=== PATIENT | female | born 1975 | race Caucasian/White ===

== ENCOUNTER 2017-08-27 05:47 | Inpatient (IN) | payer OTHER ==
[~2017-08-27 05:47] MED LIST: CITRIC ACID/SODIUM CITRATE 30 ML UNIT-DOSE CUP PO ONE; ELECTROLYTE-148 SOLN 500 ML IV ONE
[2017-08-27] MEDS ORDERED: ELECTROLYTE-148 SOLN 500 ML IV ONE (06:17)
[2017-08-27 07:00] VITALS: BMI 47.0
[2017-08-27] MEDS ORDERED: TUBERCULIN PPD 5 TU/0.1ML SYRINGE (IN PATIENT USE ONLY) ID ONE (07:00)
[2017-08-27] MEDS ORDERED: morphine SULFATE/Preservative Free 0.5 MG/ML (1cc Syringe) EP ONE (08:24)
[2017-08-27] MEDS ORDERED: IBUPROFEN 600 MG TABLET (FP) PO PRN (08:24)
[2017-08-27] MEDS ORDERED: ONDANSETRON 4 MG/2 ML VIAL IVPB PRN (08:24)
[2017-08-27] MEDS ORDERED: IBUPROFEN 800 MG/8 ML IJ IVPB PRN (08:26)
--- NOTE | 2017-08-27 08:32 | HP ---
Past Medical History - Admission History of Present Illness: 41 yo @ 39 1/7 wks by first trimester ultrasound, EDC 09/02/2017 complicated by: 1. Morbid Obesity - BMI 47.0 3 lb net weight gain this 2. GDMA 2 - on NPH insulin 28 u QHS last FS review - few fasting elevation 08/18/17 s/p ultrasound 08/26, BPP 06/17 most recent EFW (08/04/17) 2591g 34% 3. AMA - favorable cell free DNA aneuploidy assay 4. Prior CD 5. Rh negative, s/p rhogam 06/09/17 She presents for scheduled repeat delivery. Patient reports no acute complaints. She reports movement, denies leakage of fluid, contractions or vaginal bleeding History Source: Patient Limitations to Obtaining History: No Limitations - Past Medical History Cardiovascular: No: HTN Pulmonary: No: Asthma Gastrointestinal: No: GERD ...: 2 ...Para: 1 ...Term: 1 ...: 0 ...Spon : 0 ...Induced : 0 ...Multiple Gestation: 0 ...LMP: 11/28/16 ... Weeks Gestation by Dates: 38.6 ...EDC by Dates: 09/04/17 ...EDC by Sono: 09/02/17 Heme/Onc: No: Anemia Endocrine: Yes: Diabetes Mellitus (GDM) - Past Surgical History Past Surgical History: Yes: None Hx Myomectomy: No Hx Transabdominal Cerclage: No - Smoking History Smoking history: Never smoked Have you smoked in the past 12 months: No Aproximately how many cigarettes per day: 0 If you are a former smoker, when did you quit?: 1.5 yrs ago - Alcohol/Substance Use Hx Alcohol Use: No History of Substance Use: reports: None - Social History History of Recent Travel: No Home Medications - Allergies Allergies/Adverse Reactions: Allergies Allergy/AdvReac Type Severity Reaction Status Date / Time No Known Allergies Allergy Verified 08/27/17 06:34 - Home Medications Home Medications: Ambulatory Orders Vitamins (Sjr) - 1 tab PO DAILY 12/25/14 Insulin (Levemir) [Levemir Flexpen -] 28 units SQ HS 08/15/17 Family Disease History - Family Disease History Family History: Denies Review of Systems - Review of Systems Constitutional: reports: No Symptoms Neck: reports: No Symptoms Cardiovascular: reports: No Symptoms Respiratory: reports: No Symptoms Gastrointestinal: reports: No Symptoms Breasts: reports: No Symptoms Reported Musculoskeletal: reports: No Symptoms Neurological: reports: No Symptoms Psychiatric: reports: No Symptoms Physical Exam - Maternity Vital Signs: Vital Signs Temperature 97.7 F 08/27/17 05:47 Pulse Rate 71 08/27/17 05:47 Respiratory Rate 20 08/27/17 05:47 Blood Pressure 138/85 08/27/17 05:47 O2 Sat by Pulse Oximetry (%) Constitutional: Yes: Well Nourished, No Distress, Calm Neck: Yes: Supple Cardiovascular: Yes: Regular Rate and Rhythm Lungs: Clear to auscultation - Abdominal Exam/OB Number of Fetuses: Single Presentation: Vertex Contractions: No Monitor Mode: External Category: I Accelerations: Non-Uniform Decelerations: None - Physical Exam Musculoskeletal: Yes: WNL Psychiatric: Yes: Alert, Oriented - Labs Lab Results: PNL - A negative, antibody negative, Hep BSag negative; Hep C Ab negative; Hg Dianne; varicella immune; Rubella immune; Materni T 21 neg; SMA neg; CF neg; Fragile x neg; GBS neg Hemorrhage Risk Assessment - Risk Factors Medium Risk Factors: Yes: Prior , uterine surgery,or multiple laparotomies High Risk Factors: Yes: None Risk Score: 1 Risk Level: Medium Risk Assessment/Plan 41 yo @ 39 1/7 wks, for repeat CD 1. Admit to L&D 2. Routine labs collected and sent 3. Reviewed risks of surgery including but not limited to infection, bleeding requiring transfusion and damage to surrounding organs such as the bowel or bladder. Discussed risk of injury to . Discussed risk of wound infection and separation. Discussed need for planning of future children and possibility of abnormal placentation. 4. VTE - SCDs in place, plan to start lovenox PP 5. GDMA2 - FS wnl this AM, plan for fasting in AM 6. 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 Will proceed to OR
[2017-08-27] MEDS ORDERED: BENZOCAINE 20% 57 GM BOTTLE TP PRN (10:26)
[2017-08-27] MEDS ORDERED: WITCH HAZEL 50% (TUCKS) 40 PAD/JAR PAD TP PRN (10:26)
[2017-08-27] MEDS ORDERED: oxyCODONE HCL 5 MG TABLET PO PRN ×2 (10:26)
[2017-08-27] MEDS ORDERED: METHYLERGONOVINE MALEATE 0.2 MG/1 ML AMP IM PRN (10:26)
--- NOTE | 2017-08-27 10:26 | PN ---
Delivery - Delivery Section: Repeat Type of Anesthesia: Spinal EBL (cc): 1,000 Delivery, Single - Stages of Labor Placenta: Yes: Expressed - Condition of Gender: Male Weight: 7 lb 4 oz Position: Left, OT - 1 Minute Total Score: 9 5 Minutes Total Score: 9 - Feeding Plan Initial Plan: Elected not to breastfeed exclusively throughout hospitalization Remarks - Remarks Remarks: Surgeon: Fermin Assist: Lavelle Anesthesiologist: Maricarmen Surgery: Repeat CD via Pfannensteil incision UOP: 100 IVF: 2800 EBL 1000 Dictation: [id number]
[2017-08-27] MEDS: OXYTOCIN 20 UNITS in 0.9% NS 1,000 ML IV SCH (11:14)
--- NOTE | 2017-08-27 13:55 | OP ---
DATE OF OPERATION: 08/27/2017 PREOPERATIVE DIAGNOSES: 1. Intrauterine at 39 plus weeks. 2. Prior section, desiring repeat. POSTOPERATIVE DIAGNOSES: 1. Intrauterine at 39 plus weeks. 2. Prior section, desiring repeat. SURGEON: Kaley Christensen MD DYE LAB TECHNICIAN: Rey Valderrama MD ANESTHESIOLOGIST: Kam Hernadez MD ANESTHESIA: Spinal anesthesia. SURGERY: Repeat section delivery via Pfannenstiel skin incision. URINE OUTPUT: 100 mL. ESTIMATED BLOOD LOSS: 1000 mL. INTRAVENOUS FLUIDS: 2800 mL. FINDINGS: A male infant in LOT position, Apgars of 9 and 9, weight 7 pounds 4 ounces, 20 inches. Nuchal cord noted x1 and reduced. Normal tubes and ovaries bilaterally. INDICATION: The patient is a 41-year-old 2, para 1 with prior delivery desiring repeat. She was counseled regarding risks, benefits, alternatives, and complications of the procedure including infection, bleeding, and damage to underlying organs such as bowel, bladder, and ureters. She voiced understanding and was brought to the operating room. DESCRIPTION OF PROCEDURE: When anesthesia was found to be adequate, the patient was prepped and draped in the normal sterile fashion and placed in dorsal supine position with a leftward tilt. An approximately 11-cm skin incision was made with a knife and carried down to the underlying rectus fascia using the Bovie electrocautery. The fascia was nicked in the midline and extended laterally. The inferior portion of the fascial incision was tented up using Tyra clamps and dissected off the underlying rectus muscle using the Ross scissors. Attention was brought to the superior portion where in a similar fashion was tented up using Tyra clamps and dissected off the underlying rectus muscles using Ross scissors. The rectus muscles were in the midline and the peritoneum was entered sharply and the peritoneal extension was extended superiorly and inferiorly using the Ross scissors. Truong O retractor was placed in the abdominal cavity and used to retract the patient's pannus. The vesicouterine peritoneum was identified and entered sharply and bladder flap was created sharply. A hysterotomy was performed and extended laterally and superiorly using the bandage scissors. Amniotomy was performed and clear fluid noted. The head was brought to the hysterotomy site. The head was delivered. The nuchal cord was noted and reduced and followed by shoulders and body was delivered without difficulty. The cord was clamped and cut. The was handed to awaiting NICU staff present for delivery. Cord blood was collected and sent. The placenta was manually extracted. The uterus was cleared of all clots and debris. The uterus was closed using 0 Biosyn in running layer was the second layer was umbricated layer. Bleeding from large vessels were noted bilaterally and hemostasis was attained using 0 Biosyn in a figure-of-8 fashion. Vesicouterine peritoneum was reapproximated using 0 Biosyn in running fashion. Gutters were cleared of all clots and debris. Bilateral tubes and ovaries were identified and found to be normal appearing. The peritoneum was closed using 2-0 Biosyn in a running fashion. Muscle was reapproximated using 0 Biosyn in interrupted fashion. Fascia was closed using 0 Vicryl in a running fashion. Subcutaneous fat was closed using 2-0 and 3-0 Biosyn in a running fashion. The skin was reapproximated using 3-0 Vicryl. The patient tolerated the procedure well. Estimated blood loss was 1000 mL. The patient was brought to the recovery room in stable condition. Elva [id number] MTDD
[2017-08-28] MEDS: SIMETHICONE 80 MG TAB.CHEW (FP) PO PRN ×2 (05:02→08:56)
[2017-08-28] MEDS: ACETAMINOPHEN 325 MG TABLET (FP) PO PRN ×2 (05:03→08:56)
[2017-08-28] MEDS: IBUPROFEN 600 MG TABLET (FP) PO PRN ×2 (05:04→08:56)
[2017-08-28] MEDS: OXYTOCIN 20 UNITS in 0.9% NS 1,000 ML IV SCH ×2 (05:07→11:02)
--- NOTE | 2017-08-28 07:13 | PN ---
Post Progress Note - Subjective Subjective: Patient without acute complaints. Tolerating clears. ramandeep LYNN'erick this AM, voided. No ambulation or flatus yet. Denies fevers or chills. Pain well controlled. Post Day: 1 Type of Delivery: Repeat C/S Vital Signs: Vital Signs Temperature 98.1 F 08/28/17 05:07 Pulse Rate 73 08/28/17 05:07 Respiratory Rate 18 08/28/17 06:00 Blood Pressure 122/76 08/28/17 05:07 O2 Sat by Pulse Oximetry (%) Breast Exam: Yes: Soft Uterus: Yes: Fundus Firm, Fundus below umbilicus Incision: Yes: Dressing dry and intact Abdomen/GI: Yes: Abdomen soft, Tender (mild incisional) Lochia: Yes: Serosa Lochia, amount: Small Extremities: Yes: Calves non-tender, Edema (trace) Assessment/Plan 41 yo POD #1 s/p repeat CD, afebrile, vital signs stbale, doing well 1. Continue routine postoperative care. 2. Follow up AM CBC 3. Rh screen positive, will give Rhogam as indicated. 4. Encourage ambulation and incentive spirometer use 5. Continue oral pain medication 6. Gestational diabeties - fasting glucose 84 7. Anticipate discharge home postoperative day #3 or #4
--- NOTE | 2017-08-28 08:06 | PN ---
Progress Note (short form) - Note Progress Note: POD #1 - s/p repeat under spinal anesthesia with duramorph. Pt. doing well, sitting up comfortably in chair. No complaints. Good pain control. No apparent anesthetic complications noted. Continue current care.
[2017-08-28 08:52] LABS: BASOPHIL 0.4 % (0-2.0); EOSINOPHIL 1.2 % (0-4.5); MCH 28.9 pg (25.7-33.7); MCHC 33.7 g/dl (32.0-36.0); MEAN CELL VOLUME 85.8 fl (80-96); MEAN PLT VOLUME 8.1 fl (7.5-11.1); NEUTROPHILS 75.9 % (42.8-82.8); PLATELET COUNT 166 K/MM3 (134-434); RDW 14.9 % (11.6-15.6); WHITE BLOOD COUNT 6.5 K/mm3 (4.0-10.0)
[2017-08-28] MEDS: ENOXAPARIN NA (PORCINE) 40 MG/0.4 ML DISP.SYRIN SQ SCH (09:44)
[2017-08-28] MEDS ORDERED: BISACODYL 10 MG SUPP.RECT RC PRN (10:26)
--- NOTE | 2017-08-29 08:36 | PN ---
Progress Note (short form) - Note Progress Note: pod 2 doing well, ambulating CBC, BMP 08/28/17 07:45 Last Vital Signs Temp Pulse Resp BP Pulse Ox 97 F L 98 H 18 140/90 08/29/17 08:25 08/29/17 08:25 08/29/17 08:25 08/29/17 08:25 abdomen soft, no distension, no cva incision dry, clean , healing well, no calf tenderness plan ambulate , cbc in am
[2017-08-29] MEDS: ENOXAPARIN NA (PORCINE) 40 MG/0.4 ML DISP.SYRIN SQ SCH (09:30)
[2017-08-29] MEDS: OXYTOCIN 20 UNITS in 0.9% NS 1,000 ML IV SCH (11:45)
[2017-08-30 08:01] VITALS: BP 128/75; PULSE 84; TEMP 98.6
[2017-08-30 08:52] LABS: BASOPHIL 0.3 % (0-2.0); EOSINOPHIL 2.3 % (0-4.5); MCH 28.6 pg (25.7-33.7); MCHC 32.9 g/dl (32.0-36.0); MEAN CELL VOLUME 86.8 fl (80-96); MEAN PLT VOLUME 8.2 fl (7.5-11.1); NEUTROPHILS 76.4 % (42.8-82.8); PLATELET COUNT 208 K/MM3 (134-434); WHITE BLOOD COUNT 6.2 K/mm3 (4.0-10.0)
--- NOTE | 2017-08-30 09:13 | DS ---
Physical Exam-MEDICAL TRANSPORT SPECIALIST Vital Signs: Vital Signs Temperature 98.6 F 08/30/17 08:00 Pulse Rate 84 08/30/17 08:00 Respiratory Rate 20 08/30/17 08:00 Blood Pressure 128/75 08/30/17 08:00 O2 Sat by Pulse Oximetry (%) Constitutional: Yes: Well Nourished, No Distress, Calm Eyes: Yes: WNL, Conjunctiva Clear, EOM Intact HENT: Yes: WNL, Atraumatic, Normocephalic Neck: Yes: WNL, Supple, Trachea Midline Cardiovascular: Yes: WNL, Regular Rate and Rhythm Respiratory: Yes: WNL, Regular, CTA Bilaterally Gastrointestinal: Yes: WNL ...Rectal Exam: Yes: WNL Renal/: Yes: WNL ....Post : Yes: Uterus firm, Uterus non-tender, Slight lochia rubra Breast(s): Yes: WNL Musculoskeletal: Yes: WNL Extremities: Yes: WNL Integumentary: Yes: WNL Wound/Incision: Yes: Clean/Dry, Well Approximated, Sutures Intact Neurological: Yes: WNL, Alert, Oriented ...Motor Strength: WNL Psychiatric: Yes: WNL, Alert, Oriented Labs: CBC, BMP 08/30/17 07:45 Delivery - Delivery Section: Repeat, Low Flap Transverse Type of Anesthesia: Spinal Episiotomy/Laceration: None EBL (cc): 1,000 Delivery, Single - Stages of Labor Date of Delivery: 08/27/17 Time of Delivery: 09:20 Time Placenta Delivered: 09:22 Placenta: Yes: Expressed - Condition of Infant Stain Remover/Pipe 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 - 1 Minute Total Score: 9 5 Minutes Total Score: 9 - Feeding Plan Initial Plan: Elected not to breastfeed exclusively throughout hospitalization Discharge Summary Reason For Visit: SCHEDULED C/SECTION Procedures: Principal: repeat LST c/s Condition: Good - Instructions Diet, Activity, Other Instructions: regular diet, follow up office 1 week Referrals: Kaley Christensen MD [Staff Physician] - Disposition: HOME - Home Medications Comprehensive Discharge Medication List: Ambulatory Orders Vitamins (Sjr) - 1 tab PO DAILY 12/25/14 Insulin (Levemir) [Levemir Flexpen -] 28 units SQ HS 08/15/17 Ibuprofen [Motrin -] 600 mg PO QID #28 tablet 08/28/17
[2017-08-30] MEDS: ENOXAPARIN NA (PORCINE) 40 MG/0.4 ML DISP.SYRIN SQ SCH (09:38)
--- NOTE | 2017-09-01 11:57 | PATH ---
Surgical Pathology Report Patient Name: DARIO JOHNSON [facility]. Rec. #: [id number] /Age/Gender: 1975 (Age: 41) / F Account: [id number] Location: [facility] OBS/SENIOR ACTUARIAL ANALYST Taken: 08/27/2017 Received: 08/28/2017 Reported: 09/01/2017 Physicians: Kaley Christensen Specimen(s) Received PLACENTA Clinical History , 2011 Maternal obesity, advanced maternal age, gestational diabetes Final Diagnosis PLACENTA, DELIVERY: THIRD TRIMESTER PLACENTA WITH 2 INFARCTS, 3 VESSEL UMBILICAL CORD, AND UNREMARKABLE PLACENTAL MEMBRANES. Electronically Signed José Miguel Tanner M.D. Gross Description The specimen is received fresh labeled placenta and is a 404 gram, 15.0 x 12.5 x 2.3 cm. placenta with attached membranes and umbilical cord. The attached membranes are reza, translucent with focal opacities and insert marginally. The umbilical cord measures 37 cm. in length and averages 1.2 cm. in diameter. The cord inserts centrally. No true knots or strictures are identified. Cut surface of the umbilical cord reveals 3 vessels. The surface is sims-blue with minimal fibrin deposition and appropriate caliber vessels. The maternal surface is red-brown and intact. Sectioning reveals 2 intraparenchymal lesions measuring 1.0 and 1.5 cm in greatest dimension. The remaining placental parenchyma is red-brown and spongy. Research Worker Encyclopedia sections are submitted in 4 cassettes as follows: 1-membrane roll and umbilical cord; 2-3-lesions; 4-additional eligibility services representative placenta. 08/29/2017 [facility]08/29/2017
== END 2017-08-30 11:35 | disposition home or self-care (01) | DRG 765 ==
LOC: JLDR 05:47 → J3W 12:00
PROVIDERS: ADMIT Obstetrics & Gynecology; ATTEND Obstetrics & Gynecology
PROC: 10D00Z1 Extraction of Products of Conception, Low, Open Approach (ICD-10-PCS; principal; 2017-08-27)
DX: O34.211 Maternal care for low transverse scar from previous cesarean delivery (principal); O36.0930 Maternal care for other rhesus isoimmunization, third trimester, not applicable or unspecified; Z68.42 Body mass index [BMI] 45.0-49.9, adult; O24.424 Gestational diabetes mellitus in childbirth, insulin controlled; O99.214 Obesity complicating childbirth; E66.01 Morbid (severe) obesity due to excess calories; O69.81X0 Labor and delivery complicated by cord around neck, without compression, not applicable or unspecified; Z3A.39 39 weeks gestation of pregnancy; Z37.0 Single live birth
CPT/HCPCS: 36415; 85025; 85461; 86999; 88307-TC